=== PATIENT | female | born 1990 | race Caucasian/White ===

== ENCOUNTER 2019-05-24 11:40 | Emergency (ER) | payer MEDICAID ==
[~2019-05-24] VITALS: Ht 167.6 cm; Wt 78.5 kg
[2019-05-24 11:47] VITALS: BP 143/111
[2019-05-24] MEDS ORDERED: IBUPROFEN 600 MG TABLET PO ONE ×2 (12:20→12:30)
[2019-05-24] MEDS ORDERED: ACETAMINOPHEN ES 500 MG TABLET ONE (12:20)
[2019-05-24] MEDS ORDERED: ACETAMINOPHEN ES 500 MG TABLET PO ONE (12:30)
== END 2019-05-24 14:37 | disposition home or self-care (01) ==
LOC: ER 11:40
DX: S16.1XXA Strain of muscle, fascia and tendon at neck level, initial encounter (principal); V49.49XA Driver injured in collision with other motor vehicles in traffic accident, initial encounter; Y93.89 Activity, other specified; Y92.410 Unspecified street and highway as the place of occurrence of the external cause; Y99.8 Other external cause status
CPT/HCPCS: 72050-TC; 84703-TC

== ENCOUNTER 2019-09-20 08:50 | Emergency (ER) | payer BC ==
[~2019-09-20] VITALS: Ht 167.6 cm; Wt 77.1 kg
--- NOTE | 2019-09-20 09:05 | NUR ---
PT C/O OF SPOTTING SINCE THIS MORNING W/ L PELVIC CRAMPING. PT IS CONNECTED TO MONITOR, PENDING URINE SAMPLE. AAOX4. NO SOB. NOT IN ANY DISTRESS. ALINA LCONTINUE TO MONITOR. AWAITING MD MALAGON.
[2019-09-20 09:12] LABS: APPEARANCE,URINE Slightly Hazy (CLEAR); BILIRUBIN,URINE Negative (NEGATIVE); BLOOD, URINE Negative Ery/uL (NEGATIVE); COLOR,URINE Yellow (YELLOW); KETONES,URINE Negative (NEGATIVE); LEUKOCYTE ESTERASE ,URINE Trace (NEGATIVE); NITRITE, URINE Negative (NEGATIVE); PH,URINE 8.5 (5.0-8.0); PROTEIN,URINE Negative (NEGATIVE); UGLUCOSE Negative (NEGATIVE); UROBILINOGEN,URINE 0.2 EU/dL (0.2)
[2019-09-20 09:18] LABS: BACTERIA,URINE Rare /HPF (None Seen); RBC,URINE 0-3 /HPF (0-2); SQUAMOUS EPITHELIAL CELL,UR Few /HPF (None Seen)
--- NOTE | 2019-09-20 09:18 | NUR ---
US TECH AT BEDSIDE
[2019-09-20 09:23] LABS: BASOPHILS % (AUTO) 0.5 % (0.0-2.0); EOSINOPHILS % (AUTO) 8.1 % (0.0-6.0); HEMATOCRIT 37 % (33-45); HEMOGLOBIN 12.5 g/dL (11.5-14.8); LYMPHOCYTES # (AUTO) 1.6 /CMM (0.8-4.8); LYMPHOCYTES % (AUTO) 24.1 % (20.0-44.0); MEAN CORPUSCULAR HGB CONC 34 g/dl (31.0-36.0); MEAN CORPUSCULAR VOLUME 85 fL (82-100); MONOCYTES # (AUTO) 0.5 /CMM (0.1-1.30); MONOCYTES % (AUTO) 7.9 % (2.0-12.0); NEUTROPHILS # (AUTO) 3.9 /CMM (1.8-8.9); NEUTROPHILS % (AUTO) 59.4 % (43.0-81.0); PLATELET COUNT (AUTO) 462 /CMM (150-450); RED BLOOD CELL COUNT(AUTO) 4.39 MIL/uL (4.0-5.2); WHITE BLOOD COUNT (AUTO) 6.6 K/uL (4.3-11.0)
[2019-09-20 10:26] VITALS: BP 146/85
== END 2019-09-20 10:27 | disposition home or self-care (01) ==
LOC: ER 08:50
DX: O20.0 Threatened abortion (principal); Z3A.01 Less than 8 weeks gestation of pregnancy
CPT/HCPCS: 36415; 76856-TC; 81000-TC; 84702-TC; 85025-TC

== ENCOUNTER 2019-10-01 19:15 | Emergency (ER) | payer BC, MEDICAID ==
[~2019-10-01] VITALS: Ht 167.6 cm; Wt 80.3 kg
--- NOTE | 2019-10-01 19:46 | NUR ---
Pt presented to the ER for a transvaginal US and follow up HCG level. Pt has been here 2 times since the end of August and pt's NEUROSCIENCE SPECIALIST asked her to come back to the ER for these tests as their US is not working. PT denies any discomfort or spotting. 3; Para 2.
--- NOTE | 2019-10-01 19:49 | NUR ---
US tech is at the bedside.
--- NOTE | 2019-10-01 20:06 | NUR ---
Switchboard Manager is at the bedside for blood draw.
--- NOTE | 2019-10-01 21:04 | NUR ---
Patient discharged to home in stable condition. Written and verbal after care instructions given. Patient verbalizes understanding of instruction. Pt rec'd a copy of all labs and US findings to bring to her PROJECTS MANAGER tomorrow. Pt ambulated out with a steady gait. VSS. NAD noted.
[2019-10-01 21:06] VITALS: BP 128/85
== END 2019-10-01 21:07 | disposition home or self-care (01) ==
LOC: ER 19:21
DX: O20.0 Threatened abortion (principal); K58.9 Irritable bowel syndrome, unspecified; E05.90 Thyrotoxicosis, unspecified without thyrotoxic crisis or storm; Z3A.01 Less than 8 weeks gestation of pregnancy
CPT/HCPCS: 36415; 76805-TC; 84702-TC

== ENCOUNTER 2019-11-03 03:09 | Emergency (ER) | payer MEDICAID ==
[~2019-11-03] VITALS: Ht 170.2 cm; Wt 78.5 kg
--- NOTE | 2019-11-03 03:52 | NUR ---
BIBS FROM HOME TO ER BED 16. AAOX4. AMBULATORY. NO RESP DISTRESS BUT HAVE NASAL CONGESTION. C/O SINUS PRESSURE, PRESSURE AT THE BACK OF HERS EYES AND HEADACHE. PT REPORT THAT THIS BIEEN GOING ON FOR THE PAST 8 DAYS. PT REPORT THAT SHE IS FOR 10 WEEK, US DONE ON 10/08/19. GTPAL - [id number]. WAS AT BEDSIDE.
--- NOTE | 2019-11-03 03:57 | NUR ---
MD SPOKE WITH RADIOPLOGY TO CLEAR PT TO HAVE A FACIAL CT DESPITE PT BEING .
--- NOTE | 2019-11-03 03:58 | NUR ---
MD SPOKE WITH PT REGARDING RISK AND BENEFITS OF CT. PT IS GOING OT HAVE FACILA CT WITH CONTRAST
--- NOTE | 2019-11-03 03:58 | NUR ---
Chai hemphill in [facility] - 11/03/19 at 0401 by CAMI MD SPOKE WITH PT REGARDING RISK AND BENEFITS OF CT.
[2019-11-03 04:08] LABS: BASOPHILS % (AUTO) 0.6 % (0.0-2.0); HEMATOCRIT 35 % (33-45); HEMOGLOBIN 11.9 g/dL (11.5-14.8); LYMPHOCYTES % (AUTO) 26.4 % (20.0-44.0); MEAN CORPUSCULAR HGB CONC 34 g/dl (31.0-36.0); MEAN CORPUSCULAR VOLUME 84 fL (82-100); MONOCYTES # (AUTO) 0.6 /CMM (0.1-1.30); MONOCYTES % (AUTO) 7.6 % (2.0-12.0); NEUTROPHILS # (AUTO) 4.2 /CMM (1.8-8.9); NEUTROPHILS % (AUTO) 56.4 % (43.0-81.0); PLATELET COUNT (AUTO) 455 /CMM (150-450); WHITE BLOOD COUNT (AUTO) 7.5 K/uL (4.3-11.0)
[2019-11-03 04:10] LABS: CALCIUM, SERUM 8.9 mg/dL (8.5-10.1); CREATININE 0.6 mg/dL (0.6-1.3)
[2019-11-03] MEDS ORDERED: IOHEXOL-300 100 ML VIAL IV ONE (04:27)
[2019-11-03] MEDS ORDERED: CT SWABBABLE VALVE TRANS SET 1 EA INFUS.SET MC ONE (04:27)
[2019-11-03] MEDS ORDERED: IV NS 0.9% 250 ML IV ONE (04:27)
--- NOTE | 2019-11-03 05:34 | NUR ---
SRINATH CALLED REGARDING CT FACIAL RESULT.
[2019-11-03 06:04] VITALS: BP 159/97
--- NOTE | 2019-11-03 06:04 | NUR ---
Patient discharged to home in stable condition. Written and verbal after care instructions given. Patient verbalizes understanding of instruction.IV removed. Catheter intact and site benign. Pressure and 4x4 applied to site. No bleeding noted. Pt ambulatory with a steady gait
== END 2019-11-03 06:05 | disposition home or self-care (01) ==
LOC: ER 03:13
DX: O99.511 Diseases of the respiratory system complicating pregnancy, first trimester (principal); J32.9 Chronic sinusitis, unspecified; K58.9 Irritable bowel syndrome, unspecified; E78.5 Hyperlipidemia, unspecified; Z3A.10 10 weeks gestation of pregnancy
CPT/HCPCS: 36415; 70487; 80048; 85025; 99284; J7050; Q9967

== ENCOUNTER 2019-11-14 19:20 | Emergency (ER) | payer MEDICAID ==
--- NOTE | 2019-11-14 20:27 | NUR ---
CALLED PATIENT IN WAITING ROOM. NO RESPONSE.
== END 2019-11-14 20:56 | disposition left against medical advice (07) ==
LOC: ER 19:37
DX: Z53.21 Procedure and treatment not carried out due to patient leaving prior to being seen by health care provider (principal)

== ENCOUNTER 2019-11-15 21:04 | Emergency (ER) | payer MEDICAID ==
[~2019-11-15] VITALS: Ht 167.6 cm; Wt 77.1 kg
--- NOTE | 2019-11-15 22:49 | NUR ---
PT BIBSELF C/O HEMATURIA. PT DESCRIBED PASSING DARK RED CLOTS WHILE URINATING. DENIES THE NEED FOR PADS FOR VAGINAL BLEEDING. PT ALSO C/O LOWER ABDOMINAL PAIN DESCRIBED PRESSURE. PT CURRENTLY 12 WEEKS . PT AAOX4. RESPIRATIONS EVEN AND UNLABORED. SKIN WARM AND INTACT. AMBULATORY WITH STEADY GAIT. VITAL SIGNS STABLE. NO ACUTE DISTRESS NOTED AT THIS TIME. WILL CONTINUE TO MONITOR
[2019-11-15 23:15] LABS: APPEARANCE,URINE Clear (CLEAR); BILIRUBIN,URINE Negative (NEGATIVE); BLOOD, URINE Large Ery/uL (NEGATIVE); COLOR,URINE Yellow (YELLOW); KETONES,URINE Negative (NEGATIVE); LEUKOCYTE ESTERASE ,URINE Trace (NEGATIVE); NITRITE, URINE Negative (NEGATIVE); PH,URINE 6.5 (5.0-8.0); PROTEIN,URINE Negative (NEGATIVE); UGLUCOSE Negative (NEGATIVE); UROBILINOGEN,URINE 0.2 EU/dL (0.2)
--- NOTE | 2019-11-15 23:15 | NUR ---
PARTS IDENTIFIER AT BEDSIDE FOR BLOOD DRAW
[2019-11-15 23:20] LABS: BASOPHILS % (AUTO) 0.6 % (0.0-2.0); EOSINOPHILS % (AUTO) 6.9 % (0.0-6.0); HEMATOCRIT 35 % (33-45); HEMOGLOBIN 11.3 g/dL (11.5-14.8); LYMPHOCYTES # (AUTO) 2.2 /CMM (0.8-4.8); LYMPHOCYTES % (AUTO) 31.9 % (20.0-44.0); MEAN CORPUSCULAR HGB CONC 33 g/dl (31.0-36.0); MEAN CORPUSCULAR VOLUME 85 fL (82-100); MONOCYTES # (AUTO) 0.7 /CMM (0.1-1.30); MONOCYTES % (AUTO) 10.7 % (2.0-12.0); NEUTROPHILS # (AUTO) 3.4 /CMM (1.8-8.9); NEUTROPHILS % (AUTO) 49.9 % (43.0-81.0); PLATELET COUNT (AUTO) 562 /CMM (150-450); RED BLOOD CELL COUNT(AUTO) 4.06 MIL/uL (4.0-5.2); WHITE BLOOD COUNT (AUTO) 6.8 K/uL (4.3-11.0)
[2019-11-15 23:30] LABS: CALCIUM, SERUM 9.6 mg/dL (8.5-10.1); CREATININE 0.6 mg/dL (0.6-1.3); POTASSIUM 3.7 mmol/L (3.5-5.1)
[2019-11-15 23:45] LABS: RBC,URINE 21-50 /HPF (0-2)
[2019-11-15 23:46] LABS: BACTERIA,URINE Few /HPF (None Seen); SQUAMOUS EPITHELIAL CELL,UR Few /HPF (None Seen); WBC,URINE 0-2 /HPF (0-3)
--- NOTE | 2019-11-15 23:58 | NUR ---
US AT BEDSIDE
--- NOTE | 2019-11-16 00:57 | NUR ---
Patient discharged to home in stable condition. Written and verbal after care instructions given. Patient verbalizes understanding of instruction.Pt ambulatory with a steady gait
[2019-11-16 00:59] VITALS: BP 138/79
== END 2019-11-16 01:00 | disposition home or self-care (01) ==
LOC: ER 21:09
DX: O36.4XX0 Maternal care for intrauterine death, not applicable or unspecified (principal); O46.8X1 Other antepartum hemorrhage, first trimester; Z98.890 Other specified postprocedural states; Z3A.12 12 weeks gestation of pregnancy
CPT/HCPCS: 36415; 76856-TC; 80048-TC; 81000-TC; 84702-TC; 84703-TC; 85025-TC; 87086-TC; 87186-TC